=== PATIENT | male | born 1985 | race Two or more races ===

== ENCOUNTER 2020-05-13 17:19 | Inpatient (IN) | payer OTHER ==
--- NOTE | 2020-05-13 17:49 | BHS.RME ---
Substance Use & Tx History - Substance Use History Alcohol Substance amount: 6 shots of vodka Frequency of use: Daily Substance route: Oral Date of Last Use: 05/13/20 Cannabis Substance amount: 3 joints Frequency of use: Daily Substance route: Smoking Date of Last Use: 05/13/20 - Last Treatment Date of last treatment: a year ago Where was last treatment: Detox CIWA Nausea/Vomitin Muscle Tremors: 3 Anxiety: 4-Mod. Anxious/Guarded Agitation: 2 Paroxysmal Sweats: 2 Orientation: 0-Oriented Tacttile Disturbances: 0-None Auditory Disturbances: 0-None Visual Disturbances: 0-None Headache: 0-None Present CIWA-Ar Total Score: 13
[2020-05-13] MEDS ORDERED: chlordiazePOXIDE HCL 25 MG CAPSULE PO PRN (17:57)
[2020-05-13] MEDS ORDERED: MENTHOL/PHENOL 1 EACH UD MM PRN (17:58)
[2020-05-13] MEDS ORDERED: ACETAMINOPHEN 325 MG TABLET (FP) PO PRN ×2 (17:58)
[2020-05-13] MEDS ORDERED: NICOTINE POLACRILEX 2 MG GUM BUC PRN (17:58)
[2020-05-13] MEDS ORDERED: MAGNESIUM CITRATE 300 ML BOTTLE PO PRN (17:58)
[2020-05-13] MEDS ORDERED: ONDANSETRON *ODT* 4 MG TABLET SL PRN (17:58)
[2020-05-13] MEDS ORDERED: BISMUTH SUBSALICYLATE 524 MG/30 ML UD PO PRN (17:58)
[2020-05-13] MEDS ORDERED: MAG HYDROX/AL HYDROX/SIMETH 30 ML UNIT-DOSE CUP PO PRN (17:58)
[2020-05-13] MEDS ORDERED: IBUPROFEN 400 MG TABLET (FP) PO PRN (17:58)
[2020-05-13] MEDS ORDERED: MAGNESIUM HYDROX 2400MG/30ML ORAL SUSPENSION 30 ML CUP PO PRN (17:58)
--- NOTE | 2020-05-13 18:07 | HP ---
CIWA Score Nausea/Vomitin Muscle Tremors: 3 Anxiety: 4-Mod. Anxious/Guarded Agitation: 2 Paroxysmal Sweats: 2 Orientation: 0-Oriented Tacttile Disturbances: 0-None Auditory Disturbances: 0-None Visual Disturbances: 0-None Headache: 0-None Present CIWA-Ar Total Score: 13 - Admission Criteria OASAS Guidelines: Admission for Medically Managed Detox: Requires at least one of the followin. CIWA greater than 12 2. Seizures within the past 24 hours 3. Delirium tremens within the past 24 hours 4. Hallucinations within the past 24 hours 5. Acute intervention needed for co occurring medical disorder 6. Acute intervention needed for co occurring psychiatric disorder 7. Severe withdrawal that cannot be handled at a lower level of care (continued vomiting, continued diarrhea, abnormal vital signs) requiring intravenous medication and/or fluids 8. Patient presents the following: CIWA greater than 12, Acute intervention needed for co-occurring med or psych disorder Admission Criteria Met: Admission criteria met Admitting History and Physical - Admission Chief Complaint: I'm getting sick History of Present Illness: Patient is a 35y/o male presented to [facility] seeking detox form alcohol.Started drinking since age 13, currently drinking 6 shots of vodka daily. Last drink was this morning. Needs eyeopener most mornings, with lots of blackouts, last blackout was yesterday.Denies any alcohol related seizures. History Source: Patient Limitations to Obtaining History: No Limitations - Past Medical History Psych: Yes: Depression (on [place] and welbutrin, denies any suicidal ideation now.) - Past Surgical History Past Surgical History: Yes: None - Smoking History Smoking history: Current every day smoker Have you smoked in the past 12 months: Yes Aproximately how many cigarettes per day: 5 - Alcohol/Substance Use Hx Alcohol Use: Yes Number of Drinks Daily: 5 History of Substance Use: reports: Marijuana Date of Last Use: 05/13/20 - Social History Usual Living Arrangement: Yes: Alone Do you think of yourself as: Straight/Heterosexual ADL: Independent History of Recent Travel: No Admission ROS [facility] - [facility] Allergies/Adverse Reactions: Allergies Allergy/AdvReac Type Severity Reaction Status Date / Time Penicillins Allergy Verified 05/13/20 17:54 Exam Limitations: No Limitations - Ebola screening Have you traveled outside of the country in the last 21 days: No Have you had contact with anyone from an Ebola affected area: No Have you been sick,other than usual withdrawal symptoms: No Do you have a fever: No - Review of Systems Constitutional: Unintentional Wgt. Loss, Other (nausea with abdominal pain) EENT: reports: No Symptoms Reported Respiratory: reports: No Symptoms reported Cardiac: reports: No Symptoms Reported GI: reports: Nausea, Vomiting : reports: No Symptoms Reported Musculoskeletal: reports: No Symptoms Reported Integumentary: reports: No Symptoms Reported Neuro: reports: No Symptoms reported Endocrine: reports: No Symptoms Reported Hematology: reports: No Symptoms Reported Psychiatric: reports: Orientated x3, Anxious, Depressed Other Systems: Reviewed and Negative Patient History - Patient Medical History Hx Anemia: No Hx Asthma: No Hx Chronic Obstructive Pulmonary Disease (COPD): No Hx Cancer: No Hx Cardiac Disorders: No Hx Congestive Heart Failure: No Hx Hypertension: No Hx Hypercholesterolemia: No Hx Pacemaker: No HX Cerebrovascular Accident: No Hx Seizures: No Hx Dementia: No Hx Diabetes: No Hx Gastrointestinal Disorders: No Hx Liver Disease: No Hx Genitourinary Disorders: No Hx Sexually Transmitted Disorders: No - Smoking Cessation Smoking history: Current every day smoker Aproximately how many cigarettes per day: 5 Initiated information on smoking cessation: Yes 'Breaking Loose' booklet given: 05/13/20 - Substances abused Alcohol Substance route: Oral Frequency: Daily Amount used: 6 shots of vodka Age of first use: 13 Date of last use: 05/13/20 Admission Physical Exam [facility] - Physical General Appearance: Yes: Disheveled, Mild Distress, Anxious HEENTM: Yes: Within Normal Limits Respiratory: Yes: Within Normal Limits, Chest Non-Tender Neck: Yes: Within Normal Limits Breast: Yes: Breast Exam Deferred Cardiology: Yes: Within Normal Limits, Regular Rhythm, Regular Rate, S1, S2 Abdominal: Yes: Increased Bowel Sounds Genitourinary: Yes: Within Normal Limits Back: Yes: Within Normal Limits Musculoskeletal: Yes: Within Normal Limits Extremities: Yes: Within Normal Limits Neurological: Yes: Within Normal Limits Integumentary: Yes: Within Normal Limits Lymphatic: Yes: Within Normal Limits - Diagnostic (1) Uncomplicated alcohol withdrawal Current Visit: Yes Status: Acute Cleared for Admission [facility] - Detox or Rehab [facility] Level of Care: Medically Managed Detox Regimen/Protocol: Librium Claeared for Rehab Admission: No Breathalyzer - Breathalyzer Breathalyzer: 215 Inpatient Rehab Admission - Rehab Decision to Admit Inpatient rehab admission?: No
[2020-05-13] MEDS ORDERED: ONDANSETRON *ODT* 4 MG TABLET SL ONE (18:48)
[2020-05-13] MEDS: hydrOXYzine PAMOATE 25 MG CAPSULE (FP) PO SCH ×2 (20:08→22:26)
[2020-05-13] MEDS: chlordiazePOXIDE HCL 25 MG CAPSULE PO SCH ×2 (20:10→22:26)
[2020-05-13] MEDS: THIAMINE HCL 100 MG TABLET (FP) PO SCH (22:26)
[2020-05-13] MEDS: MELATONIN 5 MG TABLETS PO SCH (22:27)
[2020-05-14] MEDS: hydrOXYzine PAMOATE 25 MG CAPSULE (FP) PO SCH ×2 (06:33→10:15)
[2020-05-14] MEDS: chlordiazePOXIDE HCL 25 MG CAPSULE PO SCH ×4 (06:33→22:21)
--- NOTE | 2020-05-14 09:55 | EKG ---
Test Reason : Blood Pressure : / mmHG Vent. Rate : 103 BPM Atrial Rate : 103 BPM P-R Int : 180 ms QRS Dur : 096 ms QT Int : 400 ms P-R-T Axes : 074 090 071 degrees QTc Int : 524 ms SINUS TACHYCARDIA WITH FUSION COMPLEXES RIGHT ATRIAL ENLARGEMENT RIGHTWARD AXIS PROLONGED QT ABNORMAL ECG NO PREVIOUS ECGS AVAILABLE Confirmed by Charles Jolly MD ([id number]) on 05/14/2020 9:54:29 AM Referred By: Confirmed By:Charles Jolly MD
[2020-05-14] MEDS: NICOTINE 7 MG/24 HOURS TOPICAL PATCH TD SCH (10:15)
[2020-05-14] MEDS: PRENATAL VITAMINS W/ FOLIC ACID TABLET (FP) PO SCH (10:15)
[2020-05-14 10:20] LABS: HEMATOCRIT 42.2 % (35.4-49); HEMOGLOBIN 14.4 GM/dL (11.7-16.9); MCHC 34.2 g/dl (32.0-35.9); MEAN CELL VOLUME 93.5 fl (80-96); MEAN PLT VOLUME 10.1 fl (7.5-11.1); PLATELET COUNT 173 K/MM3 (134-434); RBC 4.51 M/mm3 (4.00-5.60); RDW 13.4 % (11.9-15.9); WHITE BLOOD COUNT 8.6 K/mm3 (4.0-10.0)
[2020-05-14 10:29] LABS: ALBUMIN 3.5 g/dl (3.4-5.0); BILIRUBIN,TOTAL 0.5 mg/dL (0.2-1); BLOOD UREA NITROGEN 16.5 mg/dL (7-18); CALCIUM 8.6 mg/dL (8.5-10.1); CREATININE 1.1 mg/dL (0.55-1.3); POTASSIUM 4.1 mmol/L (3.5-5.1); TOT PROT 6.3 g/dl (6.4-8.2)
--- NOTE | 2020-05-14 11:27 | PN ---
S CIWA - CIWA Score Nausea/Vomitin-No Nausea/No Vomiting Muscle Tremors: 3 Anxiety: 3 Agitation: 3 Paroxysmal Sweats: 3 Orientation: 0-Oriented Tacttile Disturbances: 0-None Auditory Disturbances: 0-None Visual Disturbances: 0-None Headache: 0-None Present CIWA-Ar Total Score: 12 S Progress Note (SOAP) Subjective: sweats shakes chills body aches interrupted sleep Objective: 05/14/20 11:26 Vital Signs Temperature 97.1 F L 05/14/20 08:49 Pulse Rate 91 H 05/14/20 08:49 Respiratory Rate 16 05/14/20 08:49 Blood Pressure 131/98 05/14/20 08:49 O2 Sat by Pulse Oximetry (%) 98 05/14/20 08:49 Laboratory Tests 05/14/20 05/14/20 07:00 07:00 WBC 8.6 RBC 4.51 Hgb 14.4 Hct 42.2 MCV 93.5 MCH 32.0 MCHC 34.2 RDW 13.4 Plt Count 173 MPV 10.1 Sodium 141 Potassium 4.1 Chloride 104 Carbon Dioxide 28 Anion Gap 8 BUN 16.5 Creatinine 1.1 Est GFR (CKD-EPI)AfAm 99.57 Est GFR (CKD-EPI)NonAf 85.91 Random Glucose 110 H Calcium 8.6 Total Bilirubin 0.5 AST 21 ALT 26 Alkaline Phosphatase 55 Total Protein 6.3 L Albumin 3.5 labs noted aaox3 lying in bed no acute distress Assessment: 05/14/20 11:26 withdrawals Plan: continue detox increase fluids
--- NOTE | 2020-05-14 11:40 | CONSULT ---
[facility] Psychiatric Consult - Data Date of interview: 05/14/20 Admission source: [facility] Identifying data: Mr Mendez is a 35 years old single male, unemployed, renting a room seeking detox treatment for alcohol Substance Abuse History: Reports history of alcohol use. Refer to addiction counselor's summary for further information Medical History: Unremarkable. Smokes 5 cigaretes daily Psychiatric History: This is patient's first admission to this facility. He reports that his first psychiatric contact occured in 2018 while in residential treatment at [facility]. He said that he was diagnosed with MDD and started on psychotropic medications. Reports that he currently receives outpatient psychiatrist treatment at [facility] located on [facility]. He is currently prescribed Wellbutrin, Toyei 150 mg/day and Adderall. He has no recollection of dosage for lithium and Adderall. Told senior writer that he was told by his psychiatrist that combination of Toyei and Adderall helps with impusivity. [facility], [address] [place] [address] [phone]. According to pharmacy staff, scripts for Wellbutrin SR 100 mg/day was filled on 03/11/20 and for Toyei 150 mg/day & Adderall 20 mg/bid were filled on 04/22/20. Denies previous psychiatric hospitalization or suicidal attempt. At present, reports feeling depressed, anxious and sleeping poorly. Requests to resume Wellbutrin and Toyei. since he was told that Adderall is non formulary in this facility Physical/Sexual Abuse/Trauma History: Denies history of abuse as a child or DV relationship as an adult Mental Status Exam - Mental Status Exam Alert and Oriented to: Time, Place, Person Cognitive Function: Fair Patient Appearance: Disheveled Mood: Depressed, Anxious Affect: Appropriate Patient Behavior: Cooperative Speech Pattern: Clear Voice Loudness: Normal Thought Process: Intact, Goal Oriented Hallucinations: Denies Suicidal Ideation: Denies Homicidal Ideation: Denies Insight/Judgement: Poor Sleep: Poorly Appetite: Fair Muscle strength/Tone: Normal Gait/Station: Normal Psychiatric Findings - Problem List ([place] 1, 2,3) (1) Depressive disorder Current Visit: Yes Status: Chronic (2) MDD (major depressive disorder) Current Visit: Yes Status: Ruled-out (3) Alcohol-induced mood disorder Current Visit: Yes Status: Acute (4) Alcohol-induced anxiety disorder Current Visit: Yes Status: Acute (5) Alcohol-induced sleep disorder Current Visit: Yes Status: Acute (6) Uncomplicated alcohol withdrawal Current Visit: Yes Status: Acute (7) Nicotine dependence Current Visit: Yes Status: Chronic - Initial Treatment Plan Initial Treatment Plan: 1) Continue Toyei 150 mg po daily. 2) Start Wellbutrin HCL 100 mg po daily. 3) Continue inpatient detoxification
[2020-05-14] MEDS: LITHIUM CARBONATE 150 MG CAPSULE PO SCH (14:23)
[2020-05-14] MEDS: buPROPion HCL 100 MG TABLET PO SCH (14:37)
[2020-05-14] MEDS: THIAMINE HCL 100 MG TABLET (FP) PO SCH (22:21)
[2020-05-14] MEDS: MELATONIN 5 MG TABLETS PO SCH (22:22)
[2020-05-15] MEDS: chlordiazePOXIDE HCL 25 MG CAPSULE PO SCH ×4 (05:58→22:14)
[2020-05-15] MEDS: buPROPion HCL 100 MG TABLET PO SCH (10:32)
[2020-05-15] MEDS: NICOTINE 7 MG/24 HOURS TOPICAL PATCH TD SCH (10:32)
[2020-05-15] MEDS: PRENATAL VITAMINS W/ FOLIC ACID TABLET (FP) PO SCH (10:32)
[2020-05-15] MEDS: LITHIUM CARBONATE 150 MG CAPSULE PO SCH (10:32)
--- NOTE | 2020-05-15 13:13 | PN ---
S CIWA - CIWA Score Nausea/Vomitin-No Nausea/No Vomiting Muscle Tremors: 3 Anxiety: 2 Agitation: 2 Paroxysmal Sweats: 2 Orientation: 0-Oriented Tacttile Disturbances: 0-None Auditory Disturbances: 0-None Visual Disturbances: 0-None Headache: 0-None Present CIWA-Ar Total Score: 9 BHS Progress Note (SOAP) Subjective: sleepy sweats Objective: 05/15/20 13:12 Vital Signs Temperature 97.8 F 05/15/20 08:47 Pulse Rate 78 05/15/20 08:47 Respiratory Rate 18 05/15/20 08:47 Blood Pressure 131/70 05/15/20 08:47 O2 Sat by Pulse Oximetry (%) 99 05/15/20 08:47 Laboratory Tests 05/13/20 05/13/20 05/14/20 07:00 19:00 07:00 WBC 8.6 RBC 4.51 Hgb 14.4 Hct 42.2 MCV 93.5 MCH 32.0 MCHC 34.2 RDW 13.4 Plt Count 173 MPV 10.1 Sodium Potassium Chloride Carbon Dioxide Anion Gap BUN Creatinine Est GFR (CKD-EPI)AfAm Est GFR (CKD-EPI)NonAf Random Glucose Calcium Total Bilirubin AST ALT Alkaline Phosphatase Total Protein Albumin Syphilis Serology Non-reactive COVID-19 (CYNTHIA) Not detected 05/14/20 07:00 WBC RBC Hgb Hct MCV MCH MCHC RDW Plt Count MPV Sodium 141 Potassium 4.1 Chloride 104 Carbon Dioxide 28 Anion Gap 8 BUN 16.5 Creatinine 1.1 Est GFR (CKD-EPI)AfAm 99.57 Est GFR (CKD-EPI)NonAf 85.91 Random Glucose 110 H Calcium 8.6 Total Bilirubin 0.5 AST 21 ALT 26 Alkaline Phosphatase 55 Total Protein 6.3 L Albumin 3.5 Syphilis Serology COVID-19 (CYNTHIA) labs noted aaox3 lying in bed no acute distress Assessment: 05/15/20 13:13 withdrawals Plan: continue detox
[2020-05-15] MEDS: METHOCARBAMOL 500 MG TABLET PO PRN (22:14)
[2020-05-15] MEDS: THIAMINE HCL 100 MG TABLET (FP) PO SCH (22:14)
[2020-05-15] MEDS: MELATONIN 5 MG TABLETS PO SCH (22:14)
[2020-05-16] MEDS ORDERED: chlordiazePOXIDE HCL 10 MG CAPSULE PO PRN
[2020-05-16] MEDS: chlordiazePOXIDE HCL 10 MG CAPSULE PO SCH ×4 (06:42→22:22)
[2020-05-16] MEDS: LITHIUM CARBONATE 150 MG CAPSULE PO SCH (10:15)
[2020-05-16] MEDS: buPROPion HCL 100 MG TABLET PO SCH (10:15)
[2020-05-16] MEDS: NICOTINE 7 MG/24 HOURS TOPICAL PATCH TD SCH (10:15)
[2020-05-16] MEDS: PRENATAL VITAMINS W/ FOLIC ACID TABLET (FP) PO SCH (10:15)
--- NOTE | 2020-05-16 12:24 | PN ---
S CIWA - CIWA Score Nausea/Vomitin-No Nausea/No Vomiting Muscle Tremors: 2 Anxiety: 1-Mildly Anxious Agitation: 2 Paroxysmal Sweats: 1-Minimal Palms Moist Orientation: 0-Oriented Tacttile Disturbances: 0-None Auditory Disturbances: 0-None Visual Disturbances: 0-None Headache: 0-None Present CIWA-Ar Total Score: 6 BHS Progress Note (SOAP) Subjective: sweats body aches tired Objective: 05/16/20 12:23 Vital Signs Temperature 97.5 F L 05/16/20 08:43 Pulse Rate 67 05/16/20 08:43 Respiratory Rate 18 05/16/20 08:43 Blood Pressure 134/81 05/16/20 08:43 O2 Sat by Pulse Oximetry (%) 97 05/16/20 08:43 Laboratory Tests 05/13/20 05/13/20 05/14/20 07:00 19:00 07:00 WBC 8.6 RBC 4.51 Hgb 14.4 Hct 42.2 MCV 93.5 MCH 32.0 MCHC 34.2 RDW 13.4 Plt Count 173 MPV 10.1 Sodium Potassium Chloride Carbon Dioxide Anion Gap BUN Creatinine Est GFR (CKD-EPI)AfAm Est GFR (CKD-EPI)NonAf Random Glucose Calcium Total Bilirubin AST ALT Alkaline Phosphatase Total Protein Albumin Syphilis Serology Non-reactive COVID-19 (CYNTHIA) Not detected 05/14/20 07:00 WBC RBC Hgb Hct MCV MCH MCHC RDW Plt Count MPV Sodium 141 Potassium 4.1 Chloride 104 Carbon Dioxide 28 Anion Gap 8 BUN 16.5 Creatinine 1.1 Est GFR (CKD-EPI)AfAm 99.57 Est GFR (CKD-EPI)NonAf 85.91 Random Glucose 110 H Calcium 8.6 Total Bilirubin 0.5 AST 21 ALT 26 Alkaline Phosphatase 55 Total Protein 6.3 L Albumin 3.5 Syphilis Serology COVID-19 (CYNTHIA) aaox3 ambulating no acute distress Assessment: 05/16/20 12:24 withdrawals Plan: continue detox
[2020-05-16] MEDS: METHOCARBAMOL 500 MG TABLET PO PRN (16:25)
[2020-05-16] MEDS ORDERED: hydrOXYzine PAMOATE 25 MG CAPSULE (FP) PO ONE (18:15)
--- NOTE | 2020-05-16 18:22 | PN ---
[facility] Progress Note Note: Patient complains of extreme anxiety. Vital Signs Temperature 98.9 F 05/16/20 16:45 Pulse Rate 72 05/16/20 16:45 Respiratory Rate 18 05/16/20 16:45 Blood Pressure 153/89 05/16/20 16:45 O2 Sat by Pulse Oximetry (%) 97 05/16/20 08:43 Laboratory Last Values WBC 8.6 K/mm3 (4.0-10.0) 05/14/20 07:00 RBC 4.51 M/mm3 (4.00-5.60) 05/14/20 07:00 Hgb 14.4 GM/dL (11.7-16.9) 05/14/20 07:00 Hct 42.2 % (35.4-49) 05/14/20 07:00 MCV 93.5 fl (80-96) 05/14/20 07:00 MCH 32.0 pg (25.7-33.7) 05/14/20 07:00 MCHC 34.2 g/dl (32.0-35.9) 05/14/20 07:00 RDW 13.4 % (11.9-15.9) 05/14/20 07:00 Plt Count 173 K/MM3 (134-434) 05/14/20 07:00 MPV 10.1 fl (7.5-11.1) 05/14/20 07:00 Sodium 141 mmol/L (136-145) 05/14/20 07:00 Potassium 4.1 mmol/L (3.5-5.1) 05/14/20 07:00 Chloride 104 mmol/L (98-107) 05/14/20 07:00 Carbon Dioxide 28 mmol/L (21-32) 05/14/20 07:00 Anion Gap 8 MMOL/L (8-16) 05/14/20 07:00 BUN 16.5 mg/dL (7-18) 05/14/20 07:00 Creatinine 1.1 mg/dL (0.55-1.3) 05/14/20 07:00 Est GFR (CKD-EPI)AfAm 99.57 05/14/20 07:00 Est GFR (CKD-EPI)NonAf 85.91 05/14/20 07:00 Random Glucose 110 mg/dL (74-106) H 05/14/20 07:00 Calcium 8.6 mg/dL (8.5-10.1) 05/14/20 07:00 Total Bilirubin 0.5 mg/dL (0.2-1) 05/14/20 07:00 AST 21 U/L (15-37) 05/14/20 07:00 ALT 26 U/L (13-61) 05/14/20 07:00 Alkaline Phosphatase 55 U/L (45-117) 05/14/20 07:00 Total Protein 6.3 g/dl (6.4-8.2) L 05/14/20 07:00 Albumin 3.5 g/dl (3.4-5.0) 05/14/20 07:00 Syphilis Serology Non-reactive (NONREACTIVE) 05/13/20 07:00 COVID-19 (CYNTHIA) Not detected (Not Detected) 05/13/20 19:00 Action: Hydroxyzine Pamoate (Vistaril) 25mg tablet oral ordered
[2020-05-16] MEDS: MELATONIN 5 MG TABLETS PO SCH (22:23)
[2020-05-16] MEDS: THIAMINE HCL 100 MG TABLET (FP) PO SCH (22:23)
[2020-05-17] MEDS: chlordiazePOXIDE HCL 10 MG CAPSULE PO SCH ×2 (06:04→17:53)
--- NOTE | 2020-05-17 09:28 | DS ---
[facility] Detox Discharge Summary Admission Date: 05/13/20 Discharge Date: 05/17/20 - History Present History: Alcohol Dependence - Physical Exam Results Vital Signs: Vital Signs Temperature 97.7 F 05/17/20 06:39 Pulse Rate 59 L 05/17/20 06:39 Respiratory Rate 18 05/17/20 06:39 Blood Pressure 133/88 05/17/20 06:39 O2 Sat by Pulse Oximetry (%) 97 05/17/20 06:39 Pertinent Admission Physical Exam Findings: Vital Signs Temperature 97.7 F 05/17/20 06:39 Pulse Rate 59 L 05/17/20 06:39 Respiratory Rate 18 05/17/20 06:39 Blood Pressure 133/88 05/17/20 06:39 O2 Sat by Pulse Oximetry (%) 97 05/17/20 06:39 Laboratory Tests 05/13/20 05/13/20 05/14/20 07:00 19:00 07:00 WBC 8.6 RBC 4.51 Hgb 14.4 Hct 42.2 MCV 93.5 MCH 32.0 MCHC 34.2 RDW 13.4 Plt Count 173 MPV 10.1 Sodium Potassium Chloride Carbon Dioxide Anion Gap BUN Creatinine Est GFR (CKD-EPI)AfAm Est GFR (CKD-EPI)NonAf Random Glucose Calcium Total Bilirubin AST ALT Alkaline Phosphatase Total Protein Albumin Syphilis Serology Non-reactive COVID-19 (CYNTHIA) Not detected 05/14/20 07:00 WBC RBC Hgb Hct MCV MCH MCHC RDW Plt Count MPV Sodium 141 Potassium 4.1 Chloride 104 Carbon Dioxide 28 Anion Gap 8 BUN 16.5 Creatinine 1.1 Est GFR (CKD-EPI)AfAm 99.57 Est GFR (CKD-EPI)NonAf 85.91 Random Glucose 110 H Calcium 8.6 Total Bilirubin 0.5 AST 21 ALT 26 Alkaline Phosphatase 55 Total Protein 6.3 L Albumin 3.5 Syphilis Serology COVID-19 (CYNTHIA) aaox3 ambulating no acute distress - Treatment Hospital Course: Detox Protocol Followed, Detoxed Safely, Responded well, Discharged Condition Good, Rehab Referral Accepted - Medication Discharge Medications: Ambulatory Orders [place] Carbonate [Eskalith -] 150 mg PO DAILY 05/13/20 - Diagnosis (1) Alcohol-induced anxiety disorder Current Visit: Yes Status: Acute (2) Alcohol-induced mood disorder Current Visit: Yes Status: Acute (3) Alcohol-induced sleep disorder Current Visit: Yes Status: Acute (4) Uncomplicated alcohol withdrawal Current Visit: Yes Status: Chronic (5) Depressive disorder Current Visit: Yes Status: Chronic (6) Nicotine dependence Current Visit: Yes Status: Chronic Qualifiers: Nicotine product type: cigarettes Substance use status: uncomplicated Qualified Code(s): F17.210 - Nicotine dependence, cigarettes, uncomplicated (7) MDD (major depressive disorder) Current Visit: Yes Status: Ruled-out - AMA Did Patient Leave Against Medical Advice: No (pt went home)
[2020-05-17] MEDS: buPROPion HCL 100 MG TABLET PO SCH (10:30)
[2020-05-17] MEDS: LITHIUM CARBONATE 150 MG CAPSULE PO SCH (10:30)
[2020-05-17] MEDS: NICOTINE 7 MG/24 HOURS TOPICAL PATCH TD SCH (11:30)
[2020-05-17] MEDS: PRENATAL VITAMINS W/ FOLIC ACID TABLET (FP) PO SCH (11:30)
--- NOTE | 2020-05-17 14:01 | PN ---
S CIWA - CIWA Score Nausea/Vomitin-No Nausea/No Vomiting Muscle Tremors: 2 Anxiety: 1-Mildly Anxious Agitation: 1-Slight > Activity Paroxysmal Sweats: 1-Minimal Palms Moist Orientation: 0-Oriented Tacttile Disturbances: 0-None Auditory Disturbances: 0-None Visual Disturbances: 0-None Headache: 0-None Present CIWA-Ar Total Score: 5 BHS Progress Note (SOAP) Subjective: sweats tired Objective: 05/17/20 14:00 Vital Signs Temperature 98.1 F 05/17/20 08:27 Pulse Rate 64 05/17/20 08:27 Respiratory Rate 18 05/17/20 08:27 Blood Pressure 135/93 05/17/20 08:27 O2 Sat by Pulse Oximetry (%) 98 05/17/20 08:27 aaox3 lying in bed no acute distress Assessment: 05/17/20 14:01 withdrawals Plan: continue detox d/c in am
[2020-05-17] MEDS: METHOCARBAMOL 500 MG TABLET PO PRN (22:13)
[2020-05-17] MEDS: MELATONIN 5 MG TABLETS PO SCH (22:13)
[2020-05-17] MEDS: THIAMINE HCL 100 MG TABLET (FP) PO SCH (22:13)
[2020-05-18] MEDS ORDERED: chlordiazePOXIDE HCL 10 MG CAPSULE PO ONE (05:00)
[2020-05-18 09:06] VITALS: BP 130/81; PULSE 61; TEMP 97.7
--- NOTE | 2020-05-18 11:36 | DS ---
[facility] Detox Discharge Summary Admission Date: 05/13/20 Discharge Date: 05/18/20 - History Present History: Alcohol Dependence Additional Comments: Patient seen and examined, alert and oriented x3, in acute respiratory distress. Full ROM, ambulatory in the unit without assistance. Skin warm to touch without lesions. Completed detox protocol, stable for discharge today. Encouraged to followup with aftercare. Pertinent Past History: history of depression, alcohol and nicotine. - Physical Exam Results Vital Signs: Vital Signs Temperature 97.7 F 05/18/20 05:28 Pulse Rate 61 05/18/20 05:28 Respiratory Rate 18 05/18/20 05:28 Blood Pressure 130/81 05/18/20 05:28 O2 Sat by Pulse Oximetry (%) 97 05/18/20 05:28 Vital Signs 05/18/20 05:28 Temperature 97.7 F Pulse Rate 61 Respiratory 18 Rate Blood Pressure 130/81 O2 Sat by Pulse 97 Oximetry (%) Laboratory Last Values WBC 8.6 K/mm3 (4.0-10.0) 05/14/20 07:00 RBC 4.51 M/mm3 (4.00-5.60) 05/14/20 07:00 Hgb 14.4 GM/dL (11.7-16.9) 05/14/20 07:00 Hct 42.2 % (35.4-49) 05/14/20 07:00 MCV 93.5 fl (80-96) 05/14/20 07:00 MCH 32.0 pg (25.7-33.7) 05/14/20 07:00 MCHC 34.2 g/dl (32.0-35.9) 05/14/20 07:00 RDW 13.4 % (11.9-15.9) 05/14/20 07:00 Plt Count 173 K/MM3 (134-434) 05/14/20 07:00 MPV 10.1 fl (7.5-11.1) 05/14/20 07:00 Sodium 141 mmol/L (136-145) 05/14/20 07:00 Potassium 4.1 mmol/L (3.5-5.1) 05/14/20 07:00 Chloride 104 mmol/L (98-107) 05/14/20 07:00 Carbon Dioxide 28 mmol/L (21-32) 05/14/20 07:00 Anion Gap 8 MMOL/L (8-16) 05/14/20 07:00 BUN 16.5 mg/dL (7-18) 05/14/20 07:00 Creatinine 1.1 mg/dL (0.55-1.3) 05/14/20 07:00 Est GFR (CKD-EPI)AfAm 99.57 05/14/20 07:00 Est GFR (CKD-EPI)NonAf 85.91 05/14/20 07:00 Random Glucose 110 mg/dL (74-106) H 05/14/20 07:00 Calcium 8.6 mg/dL (8.5-10.1) 05/14/20 07:00 Total Bilirubin 0.5 mg/dL (0.2-1) 05/14/20 07:00 AST 21 U/L (15-37) 05/14/20 07:00 ALT 26 U/L (13-61) 05/14/20 07:00 Alkaline Phosphatase 55 U/L (45-117) 05/14/20 07:00 Total Protein 6.3 g/dl (6.4-8.2) L 05/14/20 07:00 Albumin 3.5 g/dl (3.4-5.0) 05/14/20 07:00 Syphilis Serology Non-reactive (NONREACTIVE) 05/13/20 07:00 COVID-19 (CYNTHIA) Not detected (Not Detected) 05/13/20 19:00 Labs noted. Pertinent Admission Physical Exam Findings: Withdrawal symptoms. - Treatment Hospital Course: Detox Protocol Followed, Detoxed Safely, Responded well, Discharged Condition Good - Medication Discharge Medications: Ambulatory Orders [place] Carbonate [Eskalith -] 150 mg PO DAILY 05/13/20 - Diagnosis (1) Uncomplicated alcohol withdrawal Status: Chronic - AMA Did Patient Leave Against Medical Advice: No
== END 2020-05-18 09:54 | disposition home or self-care (01) | DRG 775 ==
LOC: YASAS 17:19 → Y6N 19:05
PROVIDERS: ADMIT Allergy & Immunology; ATTEND Allergy & Immunology
PROC: HZ2ZZZZ Detoxification Services for Substance Abuse Treatment (ICD-10-PCS; principal; 2020-05-13)
DX: F10.230 Alcohol dependence with withdrawal, uncomplicated (principal); F17.210 Nicotine dependence, cigarettes, uncomplicated; F10.24 Alcohol dependence with alcohol-induced mood disorder; F10.280 Alcohol dependence with alcohol-induced anxiety disorder; F10.282 Alcohol dependence with alcohol-induced sleep disorder; F32.9 Major depressive disorder, single episode, unspecified; Z88.0 Allergy status to penicillin
CPT/HCPCS: 36415; 80053; 85027; 86780; 93005; 93010; C9803; Q0162; U0003